=== PATIENT | female | born 1955 | race Caucasian/White ===

== ENCOUNTER 2017-10-07 16:09 | Inpatient (IN) ==
[2017-10-07] MEDS ORDERED: dilTIAZem HCl 100 MG in D5% in Water 50 ML IVC SCH (17:00)
--- NOTE | 2017-10-07 17:07 | Emergency Department Note ---
Disposition Clinical Impression: Atrial fibrillation with rapid ventricular response, Biliary colic Disposition: Admitted As Inpatient Condition: Fair Time of Disposition: 18:34 General Adult HPI - General Chief complaint: ED Chest Pain Stated complaint: A-fib w/ RVR from Cards Time Seen by Provider: 10/07/17 16:19 Source: patient Limitations: no limitations Nursing Notes Reviewed: Yes Vital Signs Reviewed: Yes - History of Present Illness HPI Narrative: She has a history of atrial fibrillation and the last one week and had palpitations which are constant went to the egg smeller today who found her to be in atrial fibrillation with rapid ventricular response and sent her here. She denies any chest pain or tightness or discomfort or pressure. Does have some exertional dyspnea. No diaphoresis. No fever. Does have some minimal swelling in her legs bilaterally which is symmetric last week which is not typical. Social history: No smoking or alcohol Pain Scale: 0 - Related Data Home Medications Medication Instructions Recorded Confirmed Atorvastatin [Lipitor] 40 mg PO HS 10/07/17 10/07/17 Carvedilol [Coreg] 6.25 mg PO BIDWM 10/07/17 10/07/17 Cholecalciferol (Vitamin D3) 5,000 unit PO DAILY 10/07/17 10/07/17 [Vitamin D3] FLUoxetine HCl [Prozac] 20 mg PO QAM 10/07/17 10/07/17 Furosemide [Lasix] 40 mg PO DAILY 10/07/17 10/07/17 Levothyroxine [Synthroid] 88 mcg PO 0630 10/07/17 10/07/17 Multivitamin [One Daily Essential] 1 each PO DAILY 10/07/17 10/07/17 [place]-3 Fatty Acids [Fish Oil] 300 mg PO DAILY 10/07/17 10/07/17 Potassium Chloride 20 meq PO DAILY 10/07/17 10/07/17 Sotalol [Betapace] 80 mg PO Q12H 10/07/17 10/07/17 Ubidecarenone [Co Q-10] 300 mg PO DAILY 10/07/17 10/07/17 Warfarin Sodium [Coumadin] 6 mg PO MOWEFR 10/07/17 10/07/17 Warfarin [Coumadin] 4 mg PO SUTUTHSA 10/07/17 10/07/17 Allergies Allergy/AdvReac Type Severity Reaction Status Date / Time Penicillins Allergy Hives Verified 10/07/17 16:35 Review of Systems: Constitutional: No fever Vision: No blurred vision ENT: No rhinorrhea Respiratory: No cough Allergic: No allergies : No blood in urine GI: No blood in stool Hematologic: No bruising Dermatologic: No skin rash Musculoskeletal: No pain in the extremities Neuro: No numbness of the extremities Past Medical History - Past Medical History Medical history: Reports: arthritis, atrial fibrillation, hypertension, thyroid disease Psychiatric history: Reports: depression - Social History Smoking Status: Never smoker Smokeless Tobacco Status: No Alcohol use: Reports: none Drug use: Reports: none Physical Exam CONSTITUTIONAL: Well-appearing; well-nourished; A&O X 3, in no apparent distress HEAD: Normocephalic; atraumatic EYES: PERRL, no scleral icterus NOSE: The nose is normal in appearance without rhinorrhea RESP: Normal chest excursion with respiration; breath sounds clear and equal bilaterally; no wheezes, rhonchi, or rales CARD: Irreg iregular rhythm, without murmurs, rub or gallop ABD: Non-distended; non-tender, soft, without rigidity, rebound or guarding,no pulsatile mass SKIN: Normal for age and race; warm and dry without diaphoresis ; no apparent lesions EXTREMITIES: Pulses are 2 plus and equal times 4 extremities, very minimal bilateral lower extremity pretibial pitting peripheral edema, no Muscle pain. No erythema or signs of infection. Pulses are 2+ in all 4 extremities - General Limitations: no limitations General appearance: alert Course Vital Signs Temperature 98.2 F 10/07/17 16:23 Pulse Rate 120 10/07/17 16:23 Respiratory Rate 16 10/07/17 16:23 Blood Pressure 130/116 10/07/17 16:23 O2 Sat by Pulse Oximetry 96 10/07/17 16:23 Temperature 98.2 F 10/07/17 16:23 Pulse Rate 80 10/07/17 17:21 Respiratory Rate 16 10/07/17 17:21 Blood Pressure 111/92 10/07/17 17:21 O2 Sat by Pulse Oximetry 95 10/07/17 17:21 Oxygen Delivery Oxygen Delivery Room Air Medical Decision Making - MDM Narrative Medical decision making narrative: Patient will receive Cardizem bolus 20 mg and Cardizem drip and I did review the EKG which does show atrial fibrillation with rapid ventricular response with a rate of 125 bpm. I do not see ischemic changes. I did compare this to previous EKG as well as EKG which was done earlier today which showed A. fib with RVR at a rate of 118 bpm. Labs are pending including thyroid studies. I did review the previous record including thyroid studies done almost 3 months ago which were normal. 1707 I did review the labs. Hospitalist has accepted the patient for admission. 1833 I did see the patient again just a few minutes ago. She has well appearance and her heart rate is currently controlled. We did discuss the admission plan. 1928 - Medical Records Medical records reviewed: Yes I reviewed the patient's medical records. - Lab Data Lab results reviewed: Yes I reviewed the patient's lab results. Result diagrams: 10/07/17 17:06 10/07/17 17:06 Lab Results 10/07/17 10/07/17 10/07/17 Range/Units 17:06 17:06 17:06 WBC 7.3 (4.3-11.1) K/mcL RBC 4.57 (3.82-4.97) M/mcL Hgb 13.5 (11.5-15.4) g/dL Hct 40.7 (35.3-44.9) % MCV 89.1 (83.0-100.0) fL MCH 29.5 (28.0-33.3) pg MCHC 33.2 (31.6-35.5) g/dL RDW 13.1 (11.5-14.5) % Plt Count 262 (140-400) K/mcL MPV 9.8 (9.4-12.4) fL Immature Gran % 0.3 (0-4) % Seg Neutrophils % 58.2 % Lymphocytes % 30.6 % Monocytes % 8.3 % Eosinophils % 2.3 % Basophils % 0.3 % Neutrophils # 4.3 (1.6-8.9) K/mcL Lymphocytes # 2.2 (0.6-4.6) K/mcL Monocytes # 0.6 (0.0-1.3) K/mcL Eosinophils # 0.2 (0.0-0.6) K/mcL Basophils # 0.0 (0.0-0.2) K/mcL PT (9.4-12.1) Seconds INR Sodium 141 (136-145) mEq/L Potassium 4.1 (3.5-4.5) mEq/L Chloride 107 (98-109) mEq/L Carbon Dioxide 22 (19-29) mEq/L BUN 13 (7-20) mg/dL Creatinine 0.77 (0.57-1.11) mg/dL Est GFR ( Amer) > 60 (> 60) Est GFR (Non-Af Amer) > 60 (> 60) BUN/Creatinine Ratio 17 (6-26) Glucose 89 (70-99) mg/dL Calculated Osmolality 292 (280-300) Calcium 9.3 (8.6-10.8) mg/dL Troponin I (0-0.03) ng/mL TSH 2.621 (0.350-4.840) mcIU/mL Free T4 1.17 (0.70-1.48) ng/dl 10/07/17 10/07/17 Range/Units 17:06 17:06 WBC (4.3-11.1) K/mcL RBC (3.82-4.97) M/mcL Hgb (11.5-15.4) g/dL Hct (35.3-44.9) % MCV (83.0-100.0) fL MCH (28.0-33.3) pg MCHC (31.6-35.5) g/dL RDW (11.5-14.5) % Plt Count (140-400) K/mcL MPV (9.4-12.4) fL Immature Gran % (0-4) % Seg Neutrophils % % Lymphocytes % % Monocytes % % Eosinophils % % Basophils % % Neutrophils # (1.6-8.9) K/mcL Lymphocytes # (0.6-4.6) K/mcL Monocytes # (0.0-1.3) K/mcL Eosinophils # (0.0-0.6) K/mcL Basophils # (0.0-0.2) K/mcL PT 24.7 H (9.4-12.1) Seconds INR 2.3 Sodium (136-145) mEq/L Potassium (3.5-4.5) mEq/L Chloride (98-109) mEq/L Carbon Dioxide (19-29) mEq/L BUN (7-20) mg/dL Creatinine (0.57-1.11) mg/dL Est GFR ( Amer) (> 60) Est GFR (Non-Af Amer) (> 60) BUN/Creatinine Ratio (6-26) Glucose (70-99) mg/dL Calculated Osmolality (280-300) Calcium (8.6-10.8) mg/dL Troponin I 0.01 (0-0.03) ng/mL TSH (0.350-4.840) mcIU/mL Free T4 (0.70-1.48) ng/dl - Radiology Data Radiology results reviewed: Yes I reviewed the patient's radiology results. Critical Care Time Critical Care Time: No
[2017-10-07 17:42] LABS: Basophils % 0.3 %; Eosinophils # 0.2 K/mcL (0.0-0.6); Eosinophils % 2.3 %; Hematocrit 40.7 % (35.3-44.9); Hemoglobin 13.5 g/dL (11.5-15.4); Immature Granulocytes % 0.3 % (0-4); Lymphocytes # 2.2 K/mcL (0.6-4.6); Lymphocytes % 30.6 %; Mean Corpuscular HGB Conc 33.2 g/dL (31.6-35.5); Mean Corpuscular Hemoglobin 29.5 pg (28.0-33.3); Mean Corpuscular Volume 89.1 fL (83.0-100.0); Mean Platelet Volume 9.8 fL (9.4-12.4); Monocytes # 0.6 K/mcL (0.0-1.3); Monocytes % 8.3 %; Neutrophils # 4.3 K/mcL (1.6-8.9); Platelet Count 262 K/mcL (140-400); Red Blood Count 4.57 M/mcL (3.82-4.97); Red Cell Distribution Width 13.1 % (11.5-14.5); Segmented Neutrophils % 58.2 %
[2017-10-07 17:50] LABS: INR 2.3; Prothrombin Time 24.7 Seconds (9.4-12.1)
[2017-10-07 17:54] LABS: BUN/Creatinine Ratio 17 (6-26); Blood Urea Nitrogen 13 mg/dL (7-20); Calcium 9.3 mg/dL (8.6-10.8); Carbon Dioxide 22 mEq/L (19-29); Chloride 107 mEq/L (98-109); Glucose 89 mg/dL (70-99); Osmolality,Calculated 292 (280-300); Potassium 4.1 mEq/L (3.5-4.5); Sodium 141 mEq/L (136-145); eGFR For African Americans > 60 (> 60); eGFR For Non-African Americans > 60 (> 60)
[2017-10-07 18:17] LABS: Thyroid Stimulating Hormone 2.621 mcIU/mL (0.350-4.840)
[2017-10-07] MEDS ORDERED: *HR* Morphine 2 MG/ML SYRINGE IVP PRN (20:32)
[2017-10-07] MEDS ORDERED: Acetaminophen 325 MG TABLET PO PRN (20:32)
[2017-10-07] MEDS ORDERED: Naloxone 0.4 MG/ML INJ IVP PRN (20:32)
--- NOTE | 2017-10-07 21:13 | Internal Med History&Physical ---
Date of Encounter: 10/07/17 Time of Encounter: 19:50 Assessment and Plan (1) Atrial fibrillation with rapid ventricular response Current visit: Yes Status: Acute 1. Currently rate controlled, but she remains in atrial fibrillation. 2. Will order magnesium level now and trend troponins. 3. Will resume home meds (Sotalol and Coreg) this evening and monitor HR. 4. Consult Cardiology for further guidance regarding Sotalol dosing and/or other anti-arrhythmic suggestions. 5. Will order ECHO as I do not see recent ECHO reports in her records. (2) Hypothyroidism Current visit: Yes Status: Chronic 1. TFT's suggest euthyroid state. 2. Continue home dose of Synthroid and monitor clinically. Qualifiers: Hypothyroidism type: unspecified Qualified Code(s): E03.9 - Hypothyroidism , unspecified (3) DVT prophylaxis Current visit: Yes Status: Acute 1. Continue home Coumadin dosing and monitor PT/INR daily. 2. INR therapeutic currently. Internal Medicine - H&P: HPI Chief complaint: palpitations, anxiety Admitted From: Emergency Dept Plans for Post Hospital Care: Home History of present illness: Ms. Johnson is a 62 year old female who presents to ER [facility] with complaints of palpitations and anxiety secondary to palpitations. She was found to have evidence of atrial fibrillation with rapid ventricular response. She was given a dose of Cardizem IV bolus, and her heart rate was controlled. She was subsequently admitted to the hospitalist service. Upon my assessment of the patient, she remains in atrial fibrillation, but she is rate controlled in the 80s now. She follows with cardiology in [place] ( Dr. Cruz). She has a history of paroxysmal atrial fibrillation and she normally runs in sinus rhythm. However, she has had recurrent bouts of atrial fibrillation with rapid rate requiring rare episodes of hospitalization. She has not had any recent medication changes and/or dosing changes. She is compliant with and religiously takes her medications. She has not had her evening meds, however. She had a prior radiofrequency catheter ablation attempted in 2012 at [facility], which was complicated by perforation of her heart requiring emergency open heart surgery. Since then, she has been managed by cardiology with a combination of both sotalol and carvedilol. She also has a history of hypothyroidism, but recent labs reveal that she is euthyroid. She denies any chest pains, heat or cold intolerance, abnormal weight gain or weight loss, shortness of breath, or unexplained fevers. She suffers from anxiety/panic attacks when her heart rate becomes elevated. When she is rate controlled and/or in sinus rhythm, she has no anxiety. Past Med Surg Social Fam HX - Past Medical History Attestation: Yes The following information was validated with the patient. Source: patient, old records reviewed Medical history: arthritis, atrial fibrillation, hypertension, thyroid disease Psychiatric history: depression - Past Surgical History Surgical History: appendectomy, other (open heart surgery after complication of radiofrequency catheter ablation for A. Fib.) - Social History Smoking Status: Never smoker Smokeless Tobacco Status: No Alcohol use: none Drug use: none Occupational status: employed Current living situation: Home, With Family Activity Level: Independent ambulation, Very active Recent Out of Country Travel Within the Last 8 Weeks: No - Family History Mother Living Status: Still Living Hx Family Cardiac Disorders: Yes Father Living Status: Still Living Hx Family Cardiac Disorders: Yes Internal Medicine - H&P: Meds Atorvastatin [Lipitor] 40 mg PO HS 10/07/17 [History] Carvedilol [Coreg] 6.25 mg PO BIDWM 10/07/17 [History] Cholecalciferol (Vitamin D3) [Vitamin D3] 5,000 unit PO DAILY 10/07/17 [History] FLUoxetine HCl [Prozac] 20 mg PO QAM 10/07/17 [History] Furosemide [Lasix] 40 mg PO DAILY 10/07/17 [History] Levothyroxine [Synthroid] 88 mcg PO 0630 10/07/17 [History] Multivitamin [One Daily Essential] 1 each PO DAILY 10/07/17 [History] [place]-3 Fatty Acids [Fish Oil] 300 mg PO DAILY 10/07/17 [History] Potassium Chloride 20 meq PO DAILY 10/07/17 [History] Sotalol [Betapace] 80 mg PO Q12H 10/07/17 [History] Ubidecarenone [Co Q-10] 300 mg PO DAILY 10/07/17 [History] Warfarin Sodium [Coumadin] 6 mg PO MOWEFR 10/07/17 [History] Warfarin [Coumadin] 4 mg PO SUTUTHSA 10/07/17 [History] 3 Allergy/AdvReac Type Severity Reaction Status Date / Time Penicillins Allergy Hives Verified 10/07/17 16:35 - Constitutional Constitutional: no chills, no fever(s), no malaise, no night sweats, no weight gain, no weight loss - EENT Eyes: no blurry vision, no change in vision Ears: no ear pain, no tinnitus Nose, mouth and throat: no nasal congestion, no sinus pressure, no sore throat - Cardiovascular Cardiovascular ROS IM: irregular heart rhythm, palpitations, no chest pain, no diaphoresis, no dyspnea, no dyspnea on exertion, no edema, no lightheadedness, no paroxysmal nocturnal dyspnea, no syncope - Respiratory Respiratory: no cough, no dyspnea, no hemoptysis - Gastrointestinal Gastrointestinal: no abdominal pain, no diarrhea, no hematemesis, no hematochezia, no melena, no nausea, no vomiting - Genitourinary Genitourinary: no dysuria, no flank pain, no hematuria - Musculoskeletal Musculoskeletal ROS IM: no arthralgias, no back pain - Integumentary Integumentary IM: no rash, no jaundice - Neurological Neurological ROS: no dizziness, no focal weakness, no frequent falls, no headache(s) - Psychiatric Psychiatric: anxiety, no depression - Endocrine Endocrine IM: no cold intolerance, no heat intolerance, no polydipsia, no polyuria - Hematologic/Lymphatic Hematologic/Lymphatic: easy bruising, no lymphadenopathy - Allergic/Immunologic Allergic/Immunologic: no wheezing, no GI upset with certain foods - Constitutional Vitals: Temp Pulse Resp BP Pulse Ox 97.7 F 93 16 96/72 98 10/07/17 20:17 10/07/17 20:17 10/07/17 20:17 10/07/17 20:17 10/07/17 20:17 General appearance: Present: cooperative, A&O X 3, pleasant, no acute distress, answers questions appropriately - Head Head exam: Present: atraumatic - Eye Eye exam: Present: EOMI, normal appearance, PERRL. Absent: scleral icterus Pupils: Present: normal accommodation - ENT ENT exam: Present: mucous membranes moist, normal exam - Neck Neck exam general surgery: Present: full ROM, supple, trachea midline. Absent: lymphadenopathy, tenderness - Expanded Neck Exam Neck exam: Absent: carotid bruit - Respiratory Respiratory exam: Present: CTAB. Absent: chest wall tenderness, rales, respiratory distress, rhonchi, wheezes - Cardiovascular Cardiovascular exam: Present: irregular rhythm, +S1, +S2. Absent: diastolic murmur, systolic murmur - GI/Abdominal GI/Abdominal exam: Present: soft. Absent: hepatomegaly, splenomegaly, tenderness - Extremities Exam Extremities exam: Present: full ROM, normal capillary refill, warm, radial pulses palpable and symmetrical. Absent: calf tenderness, joint swelling, pedal edema, tenderness - Back Exam Back exam: Absent: CVA tenderness (L), CVA tenderness (R) - Neurological Exam Neurological exam: Present: alert, CN II-XII intact, oriented X3, no focal deficits - Psychiatric Psychiatric exam: Present: normal affect, normal mood - Skin Skin exam: Present: dry, warm. Absent: rash Internal Med - H&P Results - Labs CBC & Chem 7: 10/07/17 17:06 10/07/17 17:06 - EKG Data -: EKG Interpreted by Myself - EKG Data Prior EKG available for review: yes When compared to previous EKG: there are significant changes EKG comments: 10/07/17 21:19 Atrial Fibrillation w RVR; old EKG --> NSR - Diagnostic Studies Chest x-ray Status: image reviewed by me (negative) - VTE Reasons for not Prescribing Prophylaxis: Not indicated-Anticoagulated or INR therapeutic
[2017-10-07] MEDS ORDERED: Artificial Tears SOLN 15 ML BOTTLE BOTH EYES PRN (21:54)
[2017-10-07] MEDS: *HR* Warfarin 4 MG TABLET PO SCH (22:39)
[2017-10-08 03:28] LABS: Basophils % 0.1 %; Eosinophils # 0.2 K/mcL (0.0-0.6); Eosinophils % 2.2 %; Hematocrit 37.7 % (35.3-44.9); Hemoglobin 12.9 g/dL (11.5-15.4); Immature Granulocytes % 0.4 % (0-4); Immature Platelets 2.5 % (1.1-6.1); Lymphocytes # 2.5 K/mcL (0.6-4.6); Lymphocytes % 35.8 %; Mean Corpuscular HGB Conc 34.2 g/dL (31.6-35.5); Mean Corpuscular Hemoglobin 30.3 pg (28.0-33.3); Mean Corpuscular Volume 88.5 fL (83.0-100.0); Mean Platelet Volume 9.7 fL (9.4-12.4); Monocytes # 0.6 K/mcL (0.0-1.3); Monocytes % 8.4 %; Neutrophils # 3.7 K/mcL (1.6-8.9); Platelet Count 243 K/mcL (140-400); Red Blood Count 4.26 M/mcL (3.82-4.97); Segmented Neutrophils % 53.1 %
[2017-10-08 03:36] LABS: Alanine Aminotransferase 18 Units/L (0-55); Albumin 3.4 g/dL (3.5-5.0); Alkaline Phosphatase 88 Units/L (38-126); Aspartate Amino Transferase 18 Units/L (5-34); BUN/Creatinine Ratio 17 (6-26); Bilirubin,Total 0.7 mg/dL (0.2-1.2); Blood Urea Nitrogen 13 mg/dL (7-20); Carbon Dioxide 23 mEq/L (19-29); Chloride 108 mEq/L (98-109); Chol/HDL Ratio 3.8 (0-4.9); Cholesterol 149 mg/dL (< 200); Globulin 3.5 g/dL (2.4-3.5); Glucose 86 mg/dL (70-99); HDL Cholesterol 39 mg/dL (40-59); LDL Cholesterol,Calculated 81 mg/dL (0-99); Osmolality,Calculated 289 (280-300); Potassium 3.7 mEq/L (3.5-4.5); Sodium 140 mEq/L (136-145); Total Protein 6.9 g/dL (6.0-8.3); Triglycerides 143 mg/dL (< 150); eGFR For African Americans > 60 (> 60); eGFR For Non-African Americans > 60 (> 60)
[2017-10-08] MEDS: Furosemide 40 MG TABLET PO SCH (09:01)
[2017-10-08] MEDS: Multivit/Ca/Min/Fe/FA 1 TAB TABLET PO SCH (09:01)
[2017-10-08] MEDS: Cholecalciferol (D-3) 1,000 UNIT TABLET PO SCH (09:01)
[2017-10-08] MEDS: FLUoxetine 20 MG CAPSULE PO SCH (09:01)
[2017-10-08 09:04] LABS: Prothrombin Time 21.7 Seconds (9.4-12.1)
--- NOTE | 2017-10-08 10:41 | Cardiology Consult Note ---
Addendum entered and electronically signed by Chase Ponce CNP 10/08/17 10:55 : Baseline EKG shows atrial fibrillation with RVR, HR 118, QT/QTC 328/398, QRS 98. Original Note: <Chase Ponce - Last Filed: 10/08/17 10:37> Date of Encounter: 10/08/17 Time of Encounter: 10:00 Assessment and Plan (1) Atrial fibrillation with rapid ventricular response Current Visit: Yes Status: Acute History PAF and ablation in [address] Bartholomew at [facility]. Patient reports "partial ablation "and had to undergo open heart surgery for "hole that developed during the procedure ". She reports multiple antiarrhythmics in the past. Started on Sotalol one year ago and did well until one week ago. Also c/o mild cold like symptoms for a week. Hospitalist following. Discussed with Dr. Armando Gage- will increase Sotalol to 120 mg BID. Will need first five increased doses monitored. Check EKG every morning. TSH is normal. TTE ordered. On warfarin for AC. INR below range in last month. Currently 2.1. Will need ELSI is she requires cardioversion after 5th dose. Plan discussed with patient and she agrees. Discussion w patient/family: The assessment and plan as outlined above was discussed with the patient and/or family members who expressed understanding and agreement. All questions were answered. Thank you for involving us in the care of your patient. Please call with any questions. History of Present Illness Consult date: 10/08/17 Requesting physician: Enrique Stewart Consult reason: afib with rvr Chief complaint: palpitations History of present illness: Ms. Johnson is a 62 year old female who was sent to the ER when she was found to be in atrial fibrillation with RVR in the cardiology office. She reported palpitations for one week and 5 lb weight gain. C/o 20 lb weight gain this year. C/o occasional edema, SOB and cough. C/o nasal congestion and cold like symptoms. She was treated with IV bolus of cardizem and HR improved. She is currently on sotalol 80 mg BID and warfarin for anticoagulation. Past medical history significant for PAF, hypothyroidism, and HTN, HLD, and JIN on c-pap. History of ablation in [address] Bartholomew at [facility]. Patient reports "partial ablation "and had to undergo open heart surgery for "hole that developed during the procedure ". She reports has been on multiple antiarrhythmics in the past. Past Med Surg Social Fam HX - Past Medical History Medical history: arthritis, atrial fibrillation, hypertension, thyroid disease Psychiatric history: depression - Past Surgical History Surgical History: appendectomy, other (open heart surgery after complication of radiofrequency catheter ablation for A. Fib.) - Social History Smoking Status: Never smoker Smokeless Tobacco Status: No Alcohol use: none Drug use: none - Family History Mother Living Status: Still Living Hx Family Cardiac Disorders: Yes Father Living Status: Still Living Hx Family Cardiac Disorders: Yes Medications and Allergies Atorvastatin [Lipitor] 40 mg PO HS 10/07/17 [History] Carvedilol [Coreg] 6.25 mg PO BIDWM 10/07/17 [History] Cholecalciferol (Vitamin D3) [Vitamin D3] 5,000 unit PO DAILY 10/07/17 [History] FLUoxetine HCl [Prozac] 20 mg PO QAM 10/07/17 [History] Furosemide [Lasix] 40 mg PO DAILY 10/07/17 [History] Levothyroxine [Synthroid] 88 mcg PO 0630 10/07/17 [History] Multivitamin [One Daily Essential] 1 each PO DAILY 10/07/17 [History] [place]-3 Fatty Acids [Fish Oil] 300 mg PO DAILY 10/07/17 [History] Potassium Chloride 20 meq PO DAILY 10/07/17 [History] Sotalol [Betapace] 80 mg PO Q12H 10/07/17 [History] Ubidecarenone [Co Q-10] 300 mg PO DAILY 10/07/17 [History] Warfarin Sodium [Coumadin] 6 mg PO MOWEFR 10/07/17 [History] Warfarin [Coumadin] 4 mg PO SUTUTHSA 10/07/17 [History] 3 Allergy/AdvReac Type Severity Reaction Status Date / Time Penicillins Allergy Hives Verified 10/07/17 16:35 All Systems Review: A 10-system review of systems was performed and is negative for pertinent findings except as documented above in the HPI. Physical Examination Vital Signs Temp Pulse Resp BP Pulse Ox 10/08/17 03:37 97.5 F L 100 17 108/63 95 10/07/17 22:57 98.1 F 80 17 108/66 97 10/07/17 21:44 98 10/07/17 20:17 97.7 F 93 16 96/72 98 10/07/17 19:38 14 128/59 10/07/17 19:35 69 16 134/72 96 10/07/17 19:00 65 14 143/85 97 10/07/17 18:00 72 14 144/90 95 10/07/17 17:21 80 16 111/92 95 10/07/17 16:37 74 16 132/85 96 10/07/17 16:23 98.2 F 120 16 130/116 96 Intake and Output 10/07/17 10/08/17 10/08/17 23:59 07:59 15:59 Intake Total 1400 / 1400 0 / 0 120 / 120 Output Total 0 / 0 100 / 100 Balance 1400 / 1400 -100 / -100 120 / 120 Intake: Oral 1400 / 1400 0 / 0 120 / 120 Output: Urine 0 / 0 100 / 100 Other: Meal Breakfast Percent of Meal Consumed 100% Weight 106.5 kg General: Conversant, No Apparent Distress HEENT: Atraumatic, Normocephaly, Mucus Membranes Moist Neck: No JVD, Normal carotid pulses Cardiac: Other (Irregularly irregular) Lungs: Normal Breath Sounds, No Wheeze, Rales, Rhonchi Neuro: Alert and responsive, No focal deficits noted Abdomen: Soft, Non-Tender Skin: No rashes noted on visualized skin Musculoskeletal: No Chest Wall Tenderness Extremities: No Clubbing, No Cyanosis, No Edema, Normal Pulses Results 10/08/17 02:30 10/08/17 02:30 Lab Results 10/07/17 10/07/17 10/08/17 20:49 20:49 02:30 WBC Hgb Hct Plt Count INR Sodium Potassium Chloride Carbon Dioxide BUN Creatinine Glucose Calcium Magnesium 2.3 Total Bilirubin AST ALT Alkaline Phosphatase Troponin I 0.00 0.01 10/08/17 10/08/17 10/08/17 02:30 02:30 08:46 WBC 6.9 Hgb 12.9 Hct 37.7 Plt Count 243 INR 2.0 Sodium 140 Potassium 3.7 Chloride 108 Carbon Dioxide 23 BUN 13 Creatinine 0.75 Glucose 86 Calcium 9.0 Magnesium Total Bilirubin 0.7 AST 18 ALT 18 Alkaline Phosphatase 88 Troponin I 10/08/17 08:46 WBC Hgb Hct Plt Count INR Sodium Potassium Chloride Carbon Dioxide BUN Creatinine Glucose Calcium Magnesium Total Bilirubin AST ALT Alkaline Phosphatase Troponin I 0.01 - Imaging and Cardiology Echo: pending - EKG Interpretation EKG results cardiology: personally reviewed Consult Discharge Plan - Plan Additional Instructions: pcp requested Referrals: Litzy Borja CNP [Advanced Practice Nurse] - David Main CNP [Primary Care Provider] - <Armando Gage - Last Filed: 10/08/17 12:32> Date of Encounter: 10/08/17 - Attending Attestation I have personally performed a face to face evaluation on this patient. I have reviewed and agree with the care plan. History and Exam by me shows: Recurrent PAF on sotalol with increase sotalol. Assessment and Plan Discussion w patient/family: The assessment and plan as outlined above was discussed with the patient and/or family members who expressed understanding and agreement. All questions were answered. Thank you for involving us in the care of your patient. Please call with any questions. History of Present Illness History of present illness: Ms. Johnson is a 62 year old female All Systems Review: A 10-system review of systems was performed and is negative for pertinent findings except as documented above in the HPI. Physical Examination Vital Signs, Last 4 Hours Temp Pulse Resp BP Pulse Ox 10/08/17 11:00 98.3 F 101 17 105/65 97 Results 10/08/17 02:30 10/08/17 02:30 Lab Results 10/07/17 10/07/17 10/08/17 20:49 20:49 02:30 WBC Hgb Hct Plt Count INR Sodium Potassium Chloride Carbon Dioxide BUN Creatinine Glucose Calcium Magnesium 2.3 Total Bilirubin AST ALT Alkaline Phosphatase Troponin I 0.00 0.01 10/08/17 10/08/17 10/08/17 02:30 02:30 08:46 WBC 6.9 Hgb 12.9 Hct 37.7 Plt Count 243 INR 2.0 Sodium 140 Potassium 3.7 Chloride 108 Carbon Dioxide 23 BUN 13 Creatinine 0.75 Glucose 86 Calcium 9.0 Magnesium Total Bilirubin 0.7 AST 18 ALT 18 Alkaline Phosphatase 88 Troponin I 10/08/17 08:46 WBC Hgb Hct Plt Count INR Sodium Potassium Chloride Carbon Dioxide BUN Creatinine Glucose Calcium Magnesium Total Bilirubin AST ALT Alkaline Phosphatase Troponin I 0.01
--- NOTE | 2017-10-08 15:17 | Internal Med Progress Note ---
Date of Encounter: 10/08/17 Time of Encounter: 10:45 - Assessment and plan (1) Atrial fibrillation with rapid ventricular response Current Visit: Yes Status: Acute Assessment and plan: Chronic A. fib. The patient remains in A. fib. Sotalol has been restarted. Cardiology consulted. We will follow their recommendations. On anticoagulation with Coumadin. INR is therapeutic. Moderate risk for complications. (2) Hypothyroidism Current Visit: Yes Status: Chronic Assessment and plan: Continue levothyroxine Qualifiers: Hypothyroidism type: unspecified Qualified Code(s): E03.9 - Hypothyroidism , unspecified (3) DVT prophylaxis Current Visit: Yes Status: Acute Assessment and plan: On Coumadin - Subjective Interval history: Patient is awake and alert. Feels better this morning. Palpitations have improved. Denies any chest discomfort at this time. - Constitutional Vitals: Temp Pulse Resp BP Pulse Ox 98.3 F 101 17 105/65 97 10/08/17 11:00 10/08/17 11:00 10/08/17 11:00 10/08/17 11:00 10/08/17 11:00 General appearance: Present: cooperative, A&O X 3, pleasant, no acute distress, answers questions appropriately - Neck Neck exam general surgery: Present: supple, trachea midline. Absent: lymphadenopathy - Respiratory Respiratory exam: Present: CTAB. Absent: accessory muscle use, rales, rhonchi, wheezes - Cardiovascular Cardiovascular exam: Present: irregular rhythm, +S1, +S2. Absent: diastolic murmur, gallop, rubs, systolic murmur - GI/Abdominal GI/Abdominal exam: Present: normal bowel sounds, soft, no peritoneal signs. Absent: distended, tenderness - Extremities Exam Extremities exam: Present: warm, radial pulses palpable and symmetrical. Absent : calf tenderness, cyanotic, pedal edema Internal Medicine: Result - Labs CBC & Chem 7: 10/08/17 02:30 10/08/17 02:30 Labs: Short CBC 10/08/17 Range/Units 02:30 WBC 6.9 (4.3-11.1) K/mcL Hgb 12.9 (11.5-15.4) g/dL Hct 37.7 (35.3-44.9) % Plt Count 243 (140-400) K/mcL Neutrophils # 3.7 (1.6-8.9) K/mcL BMP 10/08/17 02:30 Sodium 140 Potassium 3.7 Chloride 108 Carbon Dioxide 23 BUN 13 Creatinine 0.75 Glucose 86 Calcium 9.0 Cardiac Enzymes 10/07/17 10/08/17 10/08/17 Range/Units 20:49 02:30 08:46 Troponin I 0.00 0.01 0.01 (0-0.03) ng/mL Liver Function 10/08/17 Range/Units 02:30 Total Bilirubin 0.7 (0.2-1.2) mg/dL AST 18 (5-34) Units/L ALT 18 (0-55) Units/L Alkaline Phosphatase 88 (38-126) Units/L Albumin 3.4 L (3.5-5.0) g/dL - ABG Interpretation ABG results: PT/INR, D-dimer PT 21.7 Seconds (9.4-12.1) H 10/08/17 08:46 - Impressions Impressions Echocardiogram 10/08/17 07:00 Impressions: LVEF 50-55%. Normal LV chamber size, wall thickness and function. Indeterminate diastolic function. Normal right ventricular structure and function. Mild mitral regurgitation. Mild tricuspid regurgitation. No pulmonary hypertension. Left Ventricular Wall Motion: Rest Echo Findings All wall segments showed normal motion. Findings: Study Quality * Technically adequate exam. ECG Findings * Atrial fibrillation. Left Ventricle * LVEF 50-55%. * Normal LV chamber size, wall thickness and function. * Indeterminate diastolic function. Right Ventricle * Normal right ventricular structure and function. Left Atrium * Moderate to severely dilated left atrium. Right Atrium * Mildly dilated right atrium. Interatrial Septum * Interatrial septum not well evaluated. Aortic Valve * Trileaflet aortic valve with normal function. * No aortic stenosis. * No aortic regurgitation. Mitral Valve * Mild mitral annular calcification. Mildly thickened anterior MV leaflet. * Mild mitral regurgitation. * No significant mitral stenosis. Mean gradient 4 mmHg. Tricuspid Valve * Normal tricuspid valve structure. * Mild tricuspid regurgitation. * No pulmonary hypertension. Pulmonic Valve * Normal pulmonic valve structure. * Mild pulmonic regurgitation. Aorta * Normally sized aortic root. Pericardium * The pericardium appears normal. IVC * Normal IVC dimensions and inspiratory collapse. Pulmonary Artery * Normal visualized portions of the main pulmonary artery. - VTE Reasons for not Prescribing Prophylaxis: Not indicated-Anticoagulated or INR therapeutic Consult Discharge Plan - Plan Additional Instructions: pcp requested Referrals: Litzy Borja CNP [Advanced Practice Nurse] - David Main CNP [Primary Care Provider] -
--- NOTE | 2017-10-08 17:38 | Electrocardiograph Report ---
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
[2017-10-08] MEDS ORDERED: *HR* Warfarin 3 MG TABLET PO SCH (18:00)
[2017-10-08] MEDS ORDERED: Warfarin perPT PO PRN (18:00)
[2017-10-09 07:26] LABS: INR 2.5; Prothrombin Time 26.9 Seconds (9.4-12.1)
[2017-10-09] MEDS: FLUoxetine 20 MG CAPSULE PO SCH (08:19)
[2017-10-09] MEDS: Cholecalciferol (D-3) 1,000 UNIT TABLET PO SCH (08:20)
[2017-10-09] MEDS: Furosemide 40 MG TABLET PO SCH (08:20)
[2017-10-09] MEDS: Multivit/Ca/Min/Fe/FA 1 TAB TABLET PO SCH (08:20)
--- NOTE | 2017-10-09 08:47 | Internal Med Progress Note ---
Date of Encounter: 10/09/17 Time of Encounter: 08:44 - Assessment and plan (1) Morbid obesity Current Visit: Yes Status: Chronic Assessment and plan: chronic (2) Atrial fibrillation with rapid ventricular response Current Visit: Yes Status: Acute Assessment and plan: cardiology following rate still uncontrolled await cardiology follow up (3) Hypothyroidism Current Visit: Yes Status: Chronic Assessment and plan: tsh normal Qualifiers: Hypothyroidism type: unspecified Qualified Code(s): E03.9 - Hypothyroidism , unspecified - Subjective Interval history: Patient seen and examined no complaint today no chest pain no shortness of breath and does not feel palpitation heart rate is still in the 114-120 atrial fibrillation patient be started on sotalol 120 mg twice a day and being followed by cardiology to monotone QT interval - Constitutional Vitals: Temp Pulse Resp BP Pulse Ox 97.2 F L 89 15 103/69 97 10/09/17 06:37 10/09/17 06:37 10/09/17 06:37 10/09/17 06:37 10/09/17 06:37 General appearance: Present: cooperative, A&O X 3, pleasant, no acute distress, answers questions appropriately - Eye Eye exam: Present: PERRL, conjuntiva pink, sclera anicteric Pupils: Present: PERRL - Neck Neck exam general surgery: Present: supple, trachea midline. Absent: lymphadenopathy - Respiratory Respiratory exam: Present: CTAB. Absent: accessory muscle use, rales, rhonchi, wheezes - Cardiovascular Cardiovascular exam: Present: irregular rhythm, systolic murmur - GI/Abdominal GI/Abdominal exam: Present: normal bowel sounds, soft, no peritoneal signs. Absent: distended, tenderness - Extremities Exam Extremities exam: Present: warm, radial pulses palpable and symmetrical. Absent : calf tenderness, cyanotic, pedal edema - Neurological Exam Neurological exam: Present: CN II-XII intact, oriented X3, no focal deficits. Absent: pronater drift, facial droop, speech deficit Internal Medicine: Result - Labs CBC & Chem 7: 10/08/17 02:30 10/08/17 02:30 - ABG Interpretation ABG results: PT/INR, D-dimer PT 26.9 Seconds (9.4-12.1) H 10/09/17 06:38 - VTE Reasons for not Prescribing Prophylaxis: Not indicated-Anticoagulated or INR therapeutic Consult Discharge Plan - Plan Additional Instructions: pcp requested Referrals: Litzy Borja, NETWORK ADMINISTRATOR [Advanced Practice Nurse] - David Main CNP [Primary Care Provider] -
--- NOTE | 2017-10-09 12:48 | Cardiology Progress Note ---
Date of Encounter: 10/09/17 Time of Encounter: 12:47 Assessment and Plan (1) Atrial fibrillation with rapid ventricular response Current Visit: Yes Status: Acute History PAF and ablation [place] [address] Bartholomew at [facility]. H/o "partial ablation "and had to undergo open heart surgery for "hole that developed during the procedure ". She reports multiple antiarrhythmics in the past. Started on Sotalol one year ago and did well until one week ago. Also c/o mild cold like symptoms for a week. Hospitalist following. Discussed with Dr. Armando Gage- will increase Sotalol to 120 mg BID. Will need first five increased doses monitored. Check EKG every morning. EKG 10/09/17: HR 92 bpm, QT/QTc 388/438, QRS 101, atrial fibrillation. TSH is normal. TTE-LVEF 50-55%. Normal LV chamber size, wall thickness and function. Indeterminate diastolic function. Normal right ventricular structure and function. Mild mitral regurgitation. Mild tricuspid regurgitation. No pulmonary hypertension. On warfarin for AC. INR below range in last month. Currently 2.5. Will need ELSI is she requires cardioversion after 5th dose. Plan discussed with patient and she agrees. Discussion w patient/family: The assessment and plan as outlined above was discussed with the patient and/or family members who expressed understanding and agreement. All questions were answered. Thank you for involving us in the care of your patient. Please call with any questions. Subjective Principal diagnosis: atrial fibrillation with RVR Interval history: No events overnight Objective Vital Signs, Last 4 Hours Temp Pulse Resp BP Pulse Ox 10/09/17 11:15 97.5 F L 98 15 117/71 97 General: Conversant, No Apparent Distress HEENT: Atraumatic, Normocephaly, Mucus Membranes Moist Neck: No JVD, Normal carotid pulses Cardiac: Other (Irregularly irregular) Lungs: Normal Breath Sounds, No Wheeze, Rales, Rhonchi Neuro: Alert and responsive, No focal deficits noted Abdomen: Soft, Non-Tender Skin: No rashes noted on visualized skin Musculoskeletal: No Chest Wall Tenderness Extremities: No Clubbing, No Cyanosis, No Edema, Normal Pulses Results 10/08/17 02:30 10/08/17 02:30 Lab Results 10/09/17 06:38 INR 2.5 - EKG Interpretation EKG results cardiology: personally reviewed - VTE Reasons for not Prescribing Prophylaxis: Not indicated-Anticoagulated or INR therapeutic Consult Discharge Plan - Plan Additional Instructions: pcp requested Referrals: Litzy Borja CNP [Advanced Practice Nurse] - David Main CNP [Primary Care Provider] -
[2017-10-09] MEDS: *HR* Warfarin 4 MG TABLET PO SCH (17:07)
--- NOTE | 2017-10-10 07:53 | Cardiology Progress Note ---
Date of Encounter: 10/10/17 Time of Encounter: 07:50 Assessment and Plan (1) Atrial fibrillation with rapid ventricular response Current Visit: Yes Status: Acute Per Cardiology: History PAF and ablation in [address] Bartholomew at [facility]. H/o "partial ablation "and had to undergo open heart surgery for "hole that developed during the procedure ". She reports multiple antiarrhythmics in the past. Started on Sotalol one year ago and did well until one week ago. Also c/o mild cold like symptoms for a week. Hospitalist following. TSH is normal. Trops negative x 4. TTE-LVEF 50-55%. Normal LV chamber size, wall thickness and function. Indeterminate diastolic function. Normal right ventricular structure and function. Mild mitral regurgitation. Mild tricuspid regurgitation. No pulmonary hypertension. Now on increased [id number] mg BID-- appears to have received 4 doses. On Coreg 3.125mg PO BID. Remains afib 70-80' s. ECG shows QT/QTc = 409/437ms. On Coumadin, was subtherapeutic over past 1 month. Plan for possible ELSI/DCCV tomorrow. All questions answered. Discussion w patient/family: The assessment and plan as outlined above was discussed with the patient and/or family members who expressed understanding and agreement. All questions were answered. Thank you for involving us in the care of your patient. Please call with any questions. Subjective Principal diagnosis: atrial fibrillation with RVR Interval history: Reports still feels "out of rhythm". Denies any CP. SOB has improved. Objective Vital Signs, Last 4 Hours Temp Pulse Resp BP Pulse Ox 10/10/17 07:34 98.1 F 87 15 118/79 96 10/10/17 05:56 98.6 F 102 19 106/74 96 General: Conversant, No Apparent Distress HEENT: Atraumatic, Normocephaly Cardiac: No Murmur, Other (irregularly irregular) Lungs: Normal Breath Sounds, No Wheeze, Rales, Rhonchi Neuro: Alert and responsive, No focal deficits noted Extremities: No Edema, Normal Pulses Results 10/08/17 02:30 10/08/17 02:30 Laboratory Tests 10/07/17 10/07/17 10/07/17 17:06 17:06 20:49 INR Magnesium 2.3 Troponin I 0.01 TSH 2.621 10/07/17 10/08/17 10/08/17 20:49 02:30 08:46 INR Magnesium Troponin I 0.00 0.01 0.01 TSH 10/09/17 06:38 INR 2.5 Magnesium Troponin I TSH ITS Impressions Chest X-Ray 10/07/17 16:37 IMPRESSION: Slightly low lung volume study with some vascular crowding and minimal probable bibasilar atelectatic changes. Otherwise, no acute consolidation. D/ / 10/07/2017 17:14:50 Elmer Bennett MD / toya Interpreting Provider: Elmer Bennett MD Echocardiogram 10/08/17 07:00 Impressions: LVEF 50-55%. Normal LV chamber size, wall thickness and function. Indeterminate diastolic function. Normal right ventricular structure and function. Mild mitral regurgitation. Mild tricuspid regurgitation. No pulmonary hypertension. Left Ventricular Wall Motion: Rest Echo Findings All wall segments showed normal motion. Findings: Study Quality * Technically adequate exam. ECG Findings * Atrial fibrillation. Left Ventricle * LVEF 50-55%. * Normal LV chamber size, wall thickness and function. * Indeterminate diastolic function. Right Ventricle * Normal right ventricular structure and function. Left Atrium * Moderate to severely dilated left atrium. Right Atrium * Mildly dilated right atrium. Interatrial Septum * Interatrial septum not well evaluated. Aortic Valve * Trileaflet aortic valve with normal function. * No aortic stenosis. * No aortic regurgitation. Mitral Valve * Mild mitral annular calcification. Mildly thickened anterior MV leaflet. * Mild mitral regurgitation. * No significant mitral stenosis. Mean gradient 4 mmHg. Tricuspid Valve * Normal tricuspid valve structure. * Mild tricuspid regurgitation. * No pulmonary hypertension. Pulmonic Valve * Normal pulmonic valve structure. * Mild pulmonic regurgitation. Aorta * Normally sized aortic root. Pericardium * The pericardium appears normal. IVC * Normal IVC dimensions and inspiratory collapse. Pulmonary Artery * Normal visualized portions of the main pulmonary artery. Active Medications Acetaminophen (Tylenol) 650 mg PO Q6HR PRN PRN Reason: Mild Pain (1-3) Stop: 04/08/18 20:33 Artificial Tears (Akwa Tears) 1 drop BOTH EYES Q4H PRN; Protocol PRN Reason: Dry Eyes Stop: 04/08/18 21:55 Last Admin: 10/07/17 22:39 Dose: 1 drop Atorvastatin Calcium (Lipitor) 40 mg PO HS [facility] Stop: 04/08/18 21:01 Last Admin: 10/09/17 21:38 Dose: 40 mg Carvedilol (Coreg) 3.125 mg PO BIDWM [facility] PRN Reason: Protocol Stop: 04/09/18 17:01 Last Admin: 10/09/17 17:06 Dose: 3.125 mg Docusate Sodium (Colace) 100 mg PO BID PRN PRN Reason: Constipation Stop: 04/08/18 20:33 Fluoxetine HCl (Prozac) 20 mg PO QAM [facility]STO PRN Reason: Protocol Stop: 04/09/18 09:01 Last Admin: 10/09/17 08:19 Dose: 20 mg Furosemide (Lasix) 40 mg PO DAILY [facility] Stop: 04/09/18 09:01 Last Admin: 10/09/17 08:20 Dose: 40 mg Levothyroxine Sodium (Synthroid) 88 mcg PO 0630 [facility] Stop: 04/09/18 06:31 Last Admin: 10/10/17 06:26 Dose: 88 mcg Morphine Sulfate (Morphine Sulfate) 2 mg IVP Q4HR PRN PRN Reason: Chest Pain Stop: 04/08/18 20:33 Multivitamins/Calcium (Thera M Plus) 1 tab PO DAILY [facility] Stop: 04/09/18 09:01 Last Admin: 10/09/17 08:20 Dose: 1 tab Naloxone HCl (Narcan) 0.4 mg IVP Q2MIN PRN PRN Reason: Opioid Reversal Stop: 04/08/18 20:33 Potassium Chloride (Potassium Chloride) 20 meq PO DAILY [facility] Stop: 04/09/18 09:01 Last Admin: 10/09/17 08:20 Dose: 20 meq Sotalol HCl (Betapace) 120 mg PO Q12H [facility] Stop: 04/09/18 20:01 Last Admin: 10/09/17 21:38 Dose: 120 mg Vitamin D (Vitamin D) 1,000 unit PO DAILY [facility] Stop: 04/09/18 09:01 Last Admin: 10/09/17 08:20 Dose: 1,000 unit Warfarin Sodium (Coumadin) 4 mg PO SuTuThSa@1800 [facility] Stop: 04/08/18 21:16 Last Admin: 10/09/17 17:07 Dose: 4 mg Warfarin Sodium (Coumadin) 6 mg PO MoWeFr@1800 [facility] Stop: 04/09/18 18:01 Last Admin: 10/08/17 17:22 Dose: 6 mg Warfarin Sodium (Coumadin Perpt) 1 each PO DAILY@1800 PRN PRN Reason: SEE COMMENTS Stop: 04/09/18 18:01 - Imaging and Cardiology Chest Xray: report reviewed Echo: report reviewed - EKG Interpretation EKG results cardiology: other (tele shows afib 70-80's, avg hr past 12 hrs 94) - VTE Reasons for not Prescribing Prophylaxis: Not indicated-Anticoagulated or INR therapeutic Consult Discharge Plan - Plan Instructions: Atrial Fibrillation (DC), Hypothyroidism (DC) Additional Instructions: pcp requested Referrals: Litzy Borja PAVER INSTALLER [Advanced Practice Nurse] - David Main CNP [Primary Care Provider] -
[2017-10-10] MEDS: Cholecalciferol (D-3) 1,000 UNIT TABLET PO SCH (08:24)
[2017-10-10] MEDS: FLUoxetine 20 MG CAPSULE PO SCH (08:25)
[2017-10-10] MEDS: Multivit/Ca/Min/Fe/FA 1 TAB TABLET PO SCH (08:25)
[2017-10-10] MEDS: Furosemide 40 MG TABLET PO SCH (08:25)
--- NOTE | 2017-10-10 10:30 | Internal Med Progress Note ---
Date of Encounter: 10/10/17 Time of Encounter: 10:00 - Assessment and plan (1) Atrial fibrillation with rapid ventricular response Current Visit: Yes Status: Acute Assessment and plan: Patient remains in atrial fibrillation. Heart rate between 100-110/min. on sotalol. Cardiology plans to do DC cardioversion tomorrow. Will keep nothing by mouth after midnight. High risk for complications. on Coumadin for anticoagulation. INR is therapeutic (2) Hypothyroidism Current Visit: Yes Status: Chronic Assessment and plan: Continue levothyroxin. Patient has normal thyroid profile at this time Qualifiers: Qualified Code(s): E03.9 - Hypothyroidism, unspecified (3) DVT prophylaxis Current Visit: Yes Status: Acute Assessment and plan: On Coumadin - Subjective Interval history: Patient is awake and alert. Continues to feel tired with palpitations. No chest pain. No shortness of breath. - Constitutional Vitals: Temp Pulse Resp BP Pulse Ox 98.1 F 87 15 118/79 96 10/10/17 07:34 10/10/17 07:34 10/10/17 07:34 10/10/17 07:34 10/10/17 07:34 General appearance: Present: cooperative, A&O X 3, pleasant, no acute distress, answers questions appropriately - Neck Neck exam general surgery: Present: supple, trachea midline. Absent: lymphadenopathy - Respiratory Respiratory exam: Present: CTAB. Absent: accessory muscle use, rales, rhonchi, wheezes - Cardiovascular Cardiovascular exam: Present: irregular rhythm, +S1, +S2. Absent: diastolic murmur, gallop, rubs, systolic murmur - GI/Abdominal GI/Abdominal exam: Present: normal bowel sounds, soft, no peritoneal signs. Absent: distended, tenderness - Extremities Exam Extremities exam: Present: warm, radial pulses palpable and symmetrical. Absent : calf tenderness, cyanotic, pedal edema - Neurological Exam Neurological exam: Present: alert, CN II-XII intact, oriented X3, no focal deficits. Absent: facial droop, speech deficit - Skin Skin exam: Present: dry, intact Internal Medicine: Result - Labs CBC & Chem 7: 10/08/17 02:30 10/08/17 02:30 - ABG Interpretation ABG results: PT/INR, D-dimer PT 33.0 Seconds (9.4-12.1) H 10/10/17 08:47 - VTE Reasons for not Prescribing Prophylaxis: Not indicated-Anticoagulated or INR therapeutic Consult Discharge Plan - Plan Instructions: Atrial Fibrillation (DC), Hypothyroidism (DC) Additional Instructions: pcp requested Referrals: Litzy Borja EMPLOYEE RELATIONS ADVISOR [Advanced Practice Nurse] - David Main CNP [Primary Care Provider] -
[2017-10-11 07:16] LABS: INR 2.9; Prothrombin Time 31.5 Seconds (9.4-12.1)
[2017-10-11] MEDS: FLUoxetine 20 MG CAPSULE PO SCH (07:48)
[2017-10-11] MEDS: Cholecalciferol (D-3) 1,000 UNIT TABLET PO SCH (07:48)
[2017-10-11] MEDS: Furosemide 40 MG TABLET PO SCH (07:48)
[2017-10-11] MEDS: Multivit/Ca/Min/Fe/FA 1 TAB TABLET PO SCH (07:49)
--- NOTE | 2017-10-11 08:25 | Event Note ---
Date of Encounter: 10/11/17 Time of Encounter: 08:30 - Cardiology Event Note Denies any new concerns. S/p 6 doses increased dose of sotalol, remains afib in the 80's. Plan for ELSI/DCCV today. Will need ELSI since reported INR less than 2.0 at times over the past 30 days. INR today stable. All questions answered, further recs after procedure. Discussed with Dr. Ennis. Laboratory Tests 10/11/17 06:43 INR 2.9
[2017-10-11] MEDS ORDERED: Lidocaine Viscous Oral Soln 15 ML SOLUTION MM PRN (10:28)
[2017-10-11] MEDS ORDERED: Tetracaine/Benzocaine/Butamben 200MG/SPRAY (100SPY/BOT) MM ONE (10:29)
[2017-10-11] MEDS ORDERED: 0.9 % Sodium Chloride 500 ML IVC ONE (10:29)
[2017-10-11] MEDS: *HR* Midazolam HCl 5 MG/5 ML VIAL IVP PRN ×2 (11:25→11:40)
[2017-10-11] MEDS: *HR* FentaNYL (PF) 100 MCG/2 ML VIAL IVP PRN ×2 (11:25→11:40)
[2017-10-11 12:59] VITALS: BP 108/82
--- NOTE | 2017-10-11 13:50 | Event Note ---
Date of Encounter: 10/11/17 Time of Encounter: 13:45 - Cardiology Event Note Patient seen and doing well. Remains SB-SR, HR mid 50's. Reports HR normally 50' s - 60's at home. Now on higher dose of Sotalol 120mg PO BID and lower does of Coreg 3.125mg PO BID-- will need new scripts. Cardiology will s/o. F/u already scheduled. Anticipate DC to home today. Mild eryhthema noted to anterior chest wall from DCCV-- can apply aloe at home. Patient denies pain. All questions answered. Will keep HR and BP log at home. Patient aware to remain on Coumadin.
--- NOTE | 2017-10-11 13:55 | Discharge Summary ---
Date of Encounter: 10/11/17 Time of Encounter: 13:52 - Discharge Diagnosis (1) Atrial fibrillation with rapid ventricular response Priority: Primary Status: Acute (2) Hypothyroidism Priority: Secondary Status: Chronic Qualifiers: Hypothyroidism type: unspecified Qualified Code(s): E03.9 - Hypothyroidism , unspecified (3) DVT prophylaxis Priority: Secondary Status: Acute - Discharge Medications Prescriptions: Carvedilol 3.125 mg PO BID #60 tab Sotalol HCl [Betapace] 120 mg PO BID #60 tablet Home Medications: Atorvastatin [Lipitor] 40 mg PO HS 10/07/17 [History] Cholecalciferol (Vitamin D3) [Vitamin D3] 5,000 unit PO DAILY 10/07/17 [History] FLUoxetine HCl [Prozac] 20 mg PO QAM 10/07/17 [History] Furosemide [Lasix] 40 mg PO DAILY 10/07/17 [History] Levothyroxine [Synthroid] 88 mcg PO 0630 10/07/17 [History] Multivitamin [One Daily Essential] 1 each PO DAILY 10/07/17 [History] [place]-3 Fatty Acids [Fish Oil] 300 mg PO DAILY 10/07/17 [History] Potassium Chloride 20 meq PO DAILY 10/07/17 [History] Ubidecarenone [Co Q-10] 300 mg PO DAILY 10/07/17 [History] Warfarin Sodium [Coumadin] 6 mg PO MOWEFR 10/07/17 [History] Warfarin [Coumadin] 4 mg PO SUTUTHSA 10/07/17 [History] Carvedilol 3.125 mg PO BID #60 tab 10/11/17 [Rx] Sotalol HCl [Betapace] 120 mg PO BID #60 tablet 10/11/17 [Rx] Allergies/Adverse Reactions: 3 Allergy/AdvReac Type Severity Reaction Status Date / Time Penicillins Allergy Hives Verified 10/07/17 16:35 Procedures/tests Complete & Pending: Procedures Performed prior 72 hours Category Date Time Status ECG 12 lead ECG [ECG] Stat Y 10/11/17 10:14 Ordered EV carmen guided cardioversion Routine Y 10/11/17 10:00 Completed Date of admission: 10/08/17 15:09 Primary care physician: David Main CNP Consults: 10/07/17 20:34 Consult to Physician [CONS] Routine Consulting Provider: Armando Gage Reason for Consult: a fib/RVR on Sotalol Call Completed: No Discharging clinician: Miguelito Middleton Anticipated date of discharge: 10/11/17 - Patient Status Disposition: Home, Self-Care Condition: Good Functional capacity at discharge: independent ambulation Overall status at discharge: patient is progressing back to baseline - Discharge Instructions Instructions: Atrial Fibrillation (DC), Hypothyroidism (DC) Follow Up With: Litzy Borja CNP [Advanced Practice Nurse] - David Main CNP [Primary Care Provider] - Additional Instructions: pcp requested - Diet and Activity Diet: low fat, low cholesterol, low salt diet Hospital course: Ms. Johnson is a 62 year old female patient with history of atrial fibrillation on sotalol therapy and Coumadin presented to the ER with complaints of palpitations and anxiety. In the ER she was found to be in A. fib with rapid ventricular response. She was given Cardizem intravenously and then hospitalized to continue further management. Cardiology was consulted. Cardiology evaluated the patient and recommended increasing her dosage of sotalol to 100 mg twice a day. She was closely monitored with telemetry when this medication was being uptitrated. She remained in A. fib despite the increased dose of sotalol. Assess cardiology recommended doing a CARMEN with cardioversion. Patient underwent this procedure today and is now in sinus rhythm. She is being cleared for discharge from a cardiology standpoint. She will be discharged home on sotalol 120 mg twice daily. She will also continue to take Coumadin and Coreg 3.125 mg by mouth twice a day - Time Spent with Patient Total time spent providing and/or coordinating discharge services: Less than 30 minutes (25 min) - Constitutional Vitals: Temp Pulse Resp BP Pulse Ox 98.3 F 55 16 108/82 98 10/11/17 10:58 10/11/17 12:31 10/11/17 12:58 10/11/17 12:58 10/11/17 10:58 General appearance: Present: cooperative, A&O X 3, pleasant, no acute distress, answers questions appropriately - Respiratory Respiratory exam: Present: CTAB. Absent: accessory muscle use, rales, rhonchi, wheezes - Cardiovascular Cardiovascular exam: Present: RRR, +S1, +S2. Absent: diastolic murmur, gallop, rubs, systolic murmur - GI/Abdominal GI/Abdominal exam: Present: normal bowel sounds, soft, no peritoneal signs. Absent: distended, tenderness - Extremities Exam Extremities exam: Present: warm, radial pulses palpable and symmetrical. Absent : calf tenderness, cyanotic, pedal edema - VTE Reasons for not Prescribing Prophylaxis: Not indicated-Anticoagulated or INR therapeutic
[2017-10-11] MEDS ORDERED: *HR* Warfarin 4 MG TABLET PO ONE (18:00)
--- NOTE | 2017-10-12 22:36 | Electrocardiograph Report ---
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
--- NOTE | 2017-10-13 07:05 | Electrocardiograph Report ---
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
--- NOTE | 2017-10-13 18:17 | Electrocardiograph Report ---
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
--- NOTE | 2017-10-13 18:24 | Electrocardiograph Report ---
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
--- NOTE | 2017-10-13 18:26 | Electrocardiograph Report ---
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
== END 2017-10-11 15:35 | disposition home or self-care (01) | DRG 310 ==
LOC: 2NENU 16:09 → EMEROO 16:09 → 2NENU 19:54
PROVIDERS: ADMIT Internal Medicine; ATTEND Internal Medicine